=== PATIENT | male | born 1950 | race Caucasian/White ===

== ENCOUNTER 2023-10-01 19:15 | Emergency (ER) | payer SELFPAY ==
[~2023-10-01] VITALS: Ht 167.6 cm; Wt 72.0 kg
[2023-10-01 19:17] VITALS: O2SAT 98
[2023-10-01] MEDS: ACETAMINOPHEN 325MG TABLET PO ONE (23:11)
[2023-10-01] MEDS ORDERED: LIDO700A15 TP (23:14)
[2023-10-01] MEDS ORDERED: TOPUD MT (23:14)
[2023-10-01 23:53] VITALS: BP 140/75; PULSE 90; RESP 18; TEMP 98
== END 2023-10-01 23:57 | disposition home or self-care (01) ==
LOC: ER 19:15
DX: S80.02XA Contusion of left knee, initial encounter (principal); S39.012A Strain of muscle, fascia and tendon of lower back, initial encounter; X58.XXXA Exposure to other specified factors, initial encounter; Y93.89 Activity, other specified; Y92.89 Other specified places as the place of occurrence of the external cause; Y99.8 Other external cause status
CPT/HCPCS: 73562; 99283